=== PATIENT | male | born 1960 | race African-American/Black ===

== ENCOUNTER 2017-06-04 14:02 | Inpatient (IN) | payer OTHER ==
[2017-06-04 14:50] VITALS: BMI 28.0
[2017-06-04] MEDS ORDERED: MAG HYDROX/AL HYDROX/SIMETH 30 ML UNIT-DOSE CUP PO PRN (16:09)
[2017-06-04] MEDS ORDERED: guaiFENesin/D-METHORPHAN HB 10 ML UNIT-DOSE CUPS PO PRN (16:09)
[2017-06-04] MEDS ORDERED: MAGNESIUM HYDROX 2400MG/30ML ORAL SUSPENSION 30 ML CUP PO PRN (16:09)
[2017-06-04] MEDS ORDERED: LOPERAMIDE HCL 2 MG CAPSULE PO PRN (16:09)
[2017-06-04] MEDS ORDERED: P-EPHED 60MG/TRIPROLIDI 2.5MG TABLET PO PRN (16:09)
[2017-06-04] MEDS ORDERED: MENTHOL/PHENOL 1 EACH UD MM PRN (16:09)
[2017-06-04] MEDS ORDERED: MAGNESIUM CITRATE 300 ML BOTTLE PO PRN (16:09)
[2017-06-04] MEDS ORDERED: hydrOXYzine PAMOATE 50 MG CAPSULE (FP) PO PRN (16:09)
[2017-06-04] MEDS ORDERED: NICOTINE POLACRILEX 2 MG GUM BC PRN (16:09)
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
[2017-06-04] MEDS ORDERED: METHADONE HCL 10 MG TABLET (FOR DETOX USE ONLY) PO ONE ×2 (17:15→23:00)
[2017-06-04] MEDS: diazePAM 5 MG TABLET PO PRN (18:13)
[2017-06-04] MEDS: NICOTINE 14 MG/24 HOURS TOPICAL PATCH TD SCH (18:14)
[2017-06-04] MEDS: THIAMINE HCL 100 MG TABLET (FP) PO SCH (22:38)
[2017-06-04] MEDS: diphenhydrAMINE HCL 50 MG CAPSULE PO PRN (22:39)
[2017-06-05 00:45] LABS: URINE APPEARANCE SLCLOUDY; URINE BILIRUBIN NEGATIVE (NEGATIVE); URINE BLOOD NEGATIVE (NEGATIVE); URINE COLOR YELLOW; URINE GLUCOSE (UA) NEGATIVE (NEGATIVE); URINE KETONE TRACE (NEGATIVE); URINE LEUK ESTERASE NEGATIVE (NEGATIVE); URINE NITRITE NEGATIVE (NEGATIVE); URINE PROTEIN NEGATIVE (NEGATIVE)
[2017-06-05 09:51] LABS: MCH 27.4 pg (25.7-33.7); MCHC 32.5 g/dl (32.0-35.9); MEAN CELL VOLUME 84.4 fl (80-96); MEAN PLT VOLUME 8.5 fl (7.5-11.1); PLATELET COUNT 219 K/MM3 (134-434); RDW 14.9 % (11.9-15.9); WHITE BLOOD COUNT 5.4 K/mm3 (4.0-10.0)
[2017-06-05 09:56] LABS: ALBUMIN 2.9 g/dl (3.4-5.0); ALK PHOS 100 U/L (45-117); ANION GAP 6 (8-16); BILIRUBIN,TOTAL 0.3 mg/dL (0.2-1.0); CALCIUM 7.9 mg/dL (8.5-10.1); CO2 26 mmol/L (21-32); CREATININE 0.7 mg/dL (0.7-1.3); GLUCOSE,RANDOM 82 mg/dL (74-106); SGOT/AST 12 U/L (15-37); SGPT/ALT 21 U/L (12-78); TOT PROT 5.8 g/dl (6.4-8.2)
[2017-06-05] MEDS ORDERED: METHADONE HCL 10 MG TABLET (FOR DETOX USE ONLY) PO ONE (10:00)
[2017-06-05] MEDS: PHENYTOIN NA EXTENDED 100 MG CAPSULE (FP) PO SCH (10:34)
[2017-06-05] MEDS: PRENATAL VITAMINS W/ FOLIC ACID TABLET (FP) PO SCH (10:34)
[2017-06-05] MEDS: NICOTINE 14 MG/24 HOURS TOPICAL PATCH TD SCH (10:34)
[2017-06-05 11:17] LABS: SICKLE CELL SCREEN NEGATIVE (NEGATIVE)
--- NOTE | 2017-06-05 13:02 | PN ---
BHS COWS - Scale Resting Pulse: 0= [place] 80 or Below Sweatin= Chills/Flushing Restless Observation: 1= Difficult to Sit Still Pupil Size: 0= Normal to Room Light Bone or Joint Aches: 2= Severe Diffuse Aches Runny Nose/ Eye Tearin= Runny Nose/Eyes GI Upset > 30mins: 1= Stomach Cramp Tremor Observation of Outstretched Hands: 2= Slight Tremor Visible Yawning Observation: 2= >3x During Session Anxiety or Irritability: 2=Irritable/Anxious Goose Flesh Skin: 3=Piloerection COWS Score: 16 BHS Progress Note (SOAP) Subjective: Sweating, Tremors, Fatigue, Body Aches. Objective: PT. A & O X 3, OBSERVED AMBULATING ON UNIT. NO ACUTE DISTRESS. PT. DENIES CHEST PAIN. 06/05/17 12:59 Vital Signs Temperature 97.5 F L 06/05/17 11:21 Pulse Rate 79 06/05/17 11:21 Respiratory Rate 18 06/05/17 11:21 Blood Pressure 123/88 06/05/17 11:21 O2 Sat by Pulse Oximetry (%) Laboratory Tests 06/04/17 06/05/17 06/05/17 21:30 07:50 07:50 WBC 5.4 RBC 5.01 Hgb 13.8 Hct 42.3 MCV 84.4 MCH 27.4 MCHC 32.5 RDW 14.9 Plt Count 219 MPV 8.5 Sickle Cell Screen Negative Sodium 142 Potassium 4.1 Chloride 110 H Carbon Dioxide 26 Anion Gap 6 L BUN 7 Creatinine 0.7 Creat Clearance w eGFR > 60 Random Glucose 82 Calcium 7.9 L Total Bilirubin 0.3 AST 12 L ALT 21 Alkaline Phosphatase 100 Total Protein 5.8 L Albumin 2.9 L Urine Color Yellow Urine Appearance Slcloudy Urine pH 5.0 Ur Specific [place] >= 1.030 H Urine Protein Negative Urine Glucose (UA) Negative Urine Ketones Trace H Urine Blood Negative Urine Nitrite Negative Urine Bilirubin Negative Urine Urobilinogen 2.0 Phenytoin RPR Titer 06/05/17 06/05/17 07:50 08:10 WBC RBC Hgb Hct MCV MCH MCHC RDW Plt Count MPV Sickle Cell Screen Sodium Potassium Chloride Carbon Dioxide Anion Gap BUN Creatinine Creat Clearance w eGFR Random Glucose Calcium Total Bilirubin AST ALT Alkaline Phosphatase Total Protein Albumin Urine Color Urine Appearance Urine pH Ur Specific [place] Urine Protein Urine Glucose (UA) Urine Ketones Urine Blood Urine Nitrite Urine Bilirubin Urine Urobilinogen Phenytoin 15.6 RPR Titer Nonreactive LABS NOTED. HCV AB RESULT PENDING. 06/05/17 13:01 Assessment: 06/05/17 12:59 WITHDRAWAL SYMPTOMS. Plan: CONTINUE DETOX. REPEAT UA FOR ADMISSION UA ABNORMAL VALUES.
[2017-06-05] MEDS: ACETAMINOPHEN 325 MG TABLET (FP) PO PRN (15:12)
[2017-06-05] MEDS: diazePAM 5 MG TABLET PO PRN (20:16)
[2017-06-05] MEDS: IBUPROFEN 400 MG TABLET (FP) PO PRN (20:19)
[2017-06-05] MEDS: diphenhydrAMINE HCL 50 MG CAPSULE PO PRN (22:28)
[2017-06-05] MEDS: THIAMINE HCL 100 MG TABLET (FP) PO SCH (22:28)
[2017-06-06] MEDS: diazePAM 5 MG TABLET PO PRN ×2 (05:22→22:04)
[2017-06-06] MEDS ORDERED: METHADONE HCL 5 MG TABLET (FOR DETOX USE ONLY) PO ONE (10:00)
[2017-06-06] MEDS: PHENYTOIN NA EXTENDED 100 MG CAPSULE (FP) PO SCH (10:04)
[2017-06-06] MEDS: PRENATAL VITAMINS W/ FOLIC ACID TABLET (FP) PO SCH (10:04)
[2017-06-06] MEDS: NICOTINE 14 MG/24 HOURS TOPICAL PATCH TD SCH (10:07)
[2017-06-06] MEDS: IBUPROFEN 400 MG TABLET (FP) PO PRN (19:08)
--- NOTE | 2017-06-06 19:32 | PN ---
S COWS - Scale Resting Pulse: 0= [place] 80 or Below Sweatin= Chills/Flushing Restless Observation: 0= Sits Still Pupil Size: 0= Normal to Room Light Bone or Joint Aches: 2= Severe Diffuse Aches Runny Nose/ Eye Tearin= Nasal Congestion GI Upset > 30mins: 1= Stomach Cramp Tremor Observation of Outstretched Hands: 2= Slight Tremor Visible Yawning Observation: 1= 1-2x During Session Anxiety or Irritability: 2=Irritable/Anxious Goose Flesh Skin: 3=Piloerection COWS Score: 13 S Progress Note (SOAP) Subjective: Tremors, Fatigue, Body Aches. Objective: PT. A & O X 3, OBSERVED AMBULATING ON UNIT. NO ACUTE DISTRESS. 06/06/17 19:31 Vital Signs Temperature 97.4 F L 06/06/17 18:10 Pulse Rate 71 06/06/17 18:10 Respiratory Rate 18 06/06/17 18:10 Blood Pressure 104/60 06/06/17 18:10 O2 Sat by Pulse Oximetry (%) Laboratory Tests 06/04/17 06/05/17 06/05/17 21:30 07:50 07:50 WBC 5.4 RBC 5.01 Hgb 13.8 Hct 42.3 MCV 84.4 MCH 27.4 MCHC 32.5 RDW 14.9 Plt Count 219 MPV 8.5 Sickle Cell Screen Negative Sodium Potassium Chloride Carbon Dioxide Anion Gap BUN Creatinine Creat Clearance w eGFR Random Glucose Calcium Total Bilirubin AST ALT Alkaline Phosphatase Total Protein Albumin Urine Color Yellow Urine Appearance Slcloudy Urine pH 5.0 Ur Specific [place] >= 1.030 H Urine Protein Negative Urine Glucose (UA) Negative Urine Ketones Trace H Urine Blood Negative Urine Nitrite Negative Urine Bilirubin Negative Urine Urobilinogen 2.0 Phenytoin RPR Titer Hepatitis C Antibody 0.2 06/05/17 06/05/17 06/05/17 07:50 07:50 08:10 WBC RBC Hgb Hct MCV MCH MCHC RDW Plt Count MPV Sickle Cell Screen Sodium 142 Potassium 4.1 Chloride 110 H Carbon Dioxide 26 Anion Gap 6 L BUN 7 Creatinine 0.7 Creat Clearance w eGFR > 60 Random Glucose 82 Calcium 7.9 L Total Bilirubin 0.3 AST 12 L ALT 21 Alkaline Phosphatase 100 Total Protein 5.8 L Albumin 2.9 L Urine Color Urine Appearance Urine pH Ur Specific [place] Urine Protein Urine Glucose (UA) Urine Ketones Urine Blood Urine Nitrite Urine Bilirubin Urine Urobilinogen Phenytoin 15.6 RPR Titer Nonreactive Hepatitis C Antibody LABS NOTED. Assessment: 06/06/17 19:31 WITHDRAWAL SYMPTOMS. Plan: CONTINUE DETOX.
[2017-06-06] MEDS: THIAMINE HCL 100 MG TABLET (FP) PO SCH (22:03)
[2017-06-06] MEDS: diphenhydrAMINE HCL 50 MG CAPSULE PO PRN (22:04)
[2017-06-07] MEDS: diazePAM 5 MG TABLET PO PRN ×2 (05:36→10:29)
[2017-06-07] MEDS ORDERED: METHADONE HCL 5 MG TABLET (FOR DETOX USE ONLY) PO ONE (10:00)
[2017-06-07] MEDS: PRENATAL VITAMINS W/ FOLIC ACID TABLET (FP) PO SCH (10:29)
[2017-06-07] MEDS: PHENYTOIN NA EXTENDED 100 MG CAPSULE (FP) PO SCH (10:29)
[2017-06-07] MEDS: NICOTINE 14 MG/24 HOURS TOPICAL PATCH TD SCH (10:30)
[2017-06-07 10:35] LABS: URINE APPEARANCE CLEAR; URINE BILIRUBIN NEGATIVE (NEGATIVE); URINE BLOOD NEGATIVE (NEGATIVE); URINE COLOR STRAW; URINE GLUCOSE (UA) NEGATIVE (NEGATIVE); URINE KETONE NEGATIVE (NEGATIVE); URINE LEUK ESTERASE NEGATIVE (NEGATIVE); URINE NITRITE NEGATIVE (NEGATIVE); URINE PROTEIN NEGATIVE (NEGATIVE); URINE UROBILINOGEN NEGATIVE mg/dL (0.2-1.0)
--- NOTE | 2017-06-07 18:34 | PN ---
BHS Progress Note (SOAP) Subjective: Rhinorrhea, sweating, chills, anxious Objective: 06/07/17 18:33 Last Vital Signs Temp Pulse Resp BP Pulse Ox 97.4 F L 79 18 111/72 06/07/17 18:25 06/07/17 18:25 06/07/17 18:25 06/07/17 18:25 Laboratory Tests 06/04/17 06/05/17 06/05/17 21:30 07:50 07:50 WBC 5.4 RBC 5.01 Hgb 13.8 Hct 42.3 MCV 84.4 MCH 27.4 MCHC 32.5 RDW 14.9 Plt Count 219 MPV 8.5 Sickle Cell Screen Negative Sodium Potassium Chloride Carbon Dioxide Anion Gap BUN Creatinine Creat Clearance w eGFR Random Glucose Calcium Total Bilirubin AST ALT Alkaline Phosphatase Total Protein Albumin Urine Color Yellow Urine Appearance Slcloudy Urine pH 5.0 Ur Specific [place] >= 1.030 H Urine Protein Negative Urine Glucose (UA) Negative Urine Ketones Trace H Urine Blood Negative Urine Nitrite Negative Urine Bilirubin Negative Urine Urobilinogen 2.0 Phenytoin RPR Titer Hepatitis C Antibody 0.2 06/05/17 06/05/17 06/05/17 07:50 07:50 08:10 WBC RBC Hgb Hct MCV MCH MCHC RDW Plt Count MPV Sickle Cell Screen Sodium 142 Potassium 4.1 Chloride 110 H Carbon Dioxide 26 Anion Gap 6 L BUN 7 Creatinine 0.7 Creat Clearance w eGFR > 60 Random Glucose 82 Calcium 7.9 L Total Bilirubin 0.3 AST 12 L ALT 21 Alkaline Phosphatase 100 Total Protein 5.8 L Albumin 2.9 L Urine Color Urine Appearance Urine pH Ur Specific [place] Urine Protein Urine Glucose (UA) Urine Ketones Urine Blood Urine Nitrite Urine Bilirubin Urine Urobilinogen Phenytoin 15.6 RPR Titer Nonreactive Hepatitis C Antibody 06/07/17 07:30 WBC RBC Hgb Hct MCV MCH MCHC RDW Plt Count MPV Sickle Cell Screen Sodium Potassium Chloride Carbon Dioxide Anion Gap BUN Creatinine Creat Clearance w eGFR Random Glucose Calcium Total Bilirubin AST ALT Alkaline Phosphatase Total Protein Albumin Urine Color Straw Urine Appearance Clear Urine pH 7.0 D Ur Specific [place] 1.020 Urine Protein Negative Urine Glucose (UA) Negative Urine Ketones Negative Urine Blood Negative Urine Nitrite Negative Urine Bilirubin Negative Urine Urobilinogen Negative Phenytoin RPR Titer Hepatitis C Antibody Labs noted Assessment: 06/07/17 18:33 Withdrawal symptoms Plan: Continue detox
[2017-06-07] MEDS: ACETAMINOPHEN 325 MG TABLET (FP) PO PRN (18:35)
[2017-06-07] MEDS: THIAMINE HCL 100 MG TABLET (FP) PO SCH (22:02)
[2017-06-07] MEDS: diphenhydrAMINE HCL 50 MG CAPSULE PO PRN (22:02)
[2017-06-07] MEDS: IBUPROFEN 400 MG TABLET (FP) PO PRN (23:35)
[2017-06-08] MEDS: ACETAMINOPHEN 325 MG TABLET (FP) PO PRN (05:38)
[2017-06-08] MEDS ORDERED: METHADONE HCL 10 MG TABLET (FOR DETOX USE ONLY) PO ONE (10:00)
[2017-06-08] MEDS: NICOTINE 14 MG/24 HOURS TOPICAL PATCH TD SCH (10:19)
[2017-06-08] MEDS: PRENATAL VITAMINS W/ FOLIC ACID TABLET (FP) PO SCH (10:19)
[2017-06-08] MEDS: PHENYTOIN NA EXTENDED 100 MG CAPSULE (FP) PO SCH (10:19)
[2017-06-08] MEDS: IBUPROFEN 400 MG TABLET (FP) PO PRN (10:22)
[2017-06-08] MEDS ORDERED: IBUPROFEN 600 MG TABLET (FP) PO PRN (10:49)
--- NOTE | 2017-06-08 11:05 | PN ---
BHS Progress Note (SOAP) Subjective: Body aches,stuffy & runny nose,interrupted sleep,restless Objective: 06/08/17 11:03 Vital Signs - 8 hr 06/08/17 06/08/17 06/08/17 04:05 06:05 09:40 Temperature 98.2 F 97.6 F Pulse Rate 77 72 Respiratory 18 18 20 Rate Blood Pressure 141/95 129/91 Laboratory Last Values WBC 5.4 K/mm3 (4.0-10.0) 06/05/17 07:50 RBC 5.01 M/mm3 (4.00-5.60) 06/05/17 07:50 Hgb 13.8 GM/dL (11.7-16.9) 06/05/17 07:50 Hct 42.3 % (35.4-49) 06/05/17 07:50 MCV 84.4 fl (80-96) 06/05/17 07:50 MCH 27.4 pg (25.7-33.7) 06/05/17 07:50 MCHC 32.5 g/dl (32.0-35.9) 06/05/17 07:50 RDW 14.9 % (11.9-15.9) 06/05/17 07:50 Plt Count 219 K/MM3 (134-434) 06/05/17 07:50 MPV 8.5 fl (7.5-11.1) 06/05/17 07:50 Sickle Cell Screen Negative (NEGATIVE) 06/05/17 07:50 Sodium 142 mmol/L (136-145) 06/05/17 07:50 Potassium 4.1 mmol/L (3.5-5.1) 06/05/17 07:50 Chloride 110 mmol/L (98-107) H 06/05/17 07:50 Carbon Dioxide 26 mmol/L (21-32) 06/05/17 07:50 Anion Gap 6 (8-16) L 06/05/17 07:50 BUN 7 mg/dL (7-18) 06/05/17 07:50 Creatinine 0.7 mg/dL (0.7-1.3) 06/05/17 07:50 Creat Clearance w eGFR > 60 (>60) 06/05/17 07:50 Random Glucose 82 mg/dL (74-106) 06/05/17 07:50 Calcium 7.9 mg/dL (8.5-10.1) L 06/05/17 07:50 Total Bilirubin 0.3 mg/dL (0.2-1.0) 06/05/17 07:50 AST 12 U/L (15-37) L 06/05/17 07:50 ALT 21 U/L (12-78) 06/05/17 07:50 Alkaline Phosphatase 100 U/L (45-117) 06/05/17 07:50 Total Protein 5.8 g/dl (6.4-8.2) L 06/05/17 07:50 Albumin 2.9 g/dl (3.4-5.0) L 06/05/17 07:50 Urine Color Straw 06/07/17 07:30 Urine Appearance Clear 06/07/17 07:30 Urine pH 7.0 (5.0-8.0) D 06/07/17 07:30 Ur Specific [place] 1.020 (1.005-1.025) 06/07/17 07:30 Urine Protein Negative (NEGATIVE) 06/07/17 07:30 Urine Glucose (UA) Negative (NEGATIVE) 06/07/17 07:30 Urine Ketones Negative (NEGATIVE) 06/07/17 07:30 Urine Blood Negative (NEGATIVE) 06/07/17 07:30 Urine Nitrite Negative (NEGATIVE) 06/07/17 07:30 Urine Bilirubin Negative (NEGATIVE) 06/07/17 07:30 Urine Urobilinogen Negative mg/dL (0.2-1.0) 06/07/17 07:30 Phenytoin 15.6 ug/ml (10.0-20.0) 06/05/17 08:10 RPR Titer Nonreactive (NONREACTIVE) 06/05/17 07:50 Hepatitis C Antibody 0.2 s/co ratio (0.0-0.9) 06/05/17 07:50 labs noted Assessment: 06/08/17 11:04 Withdrawal sx. Plan: Continue detox
[2017-06-08] MEDS: cloNIDine HCL 0.1 MG TABLET PO SCH ×2 (12:12→21:44)
[2017-06-08] MEDS: CYCLOBENZAPRINE HCL 5 MG TABLET PO SCH ×2 (13:09→21:44)
--- NOTE | 2017-06-08 17:04 | EKG ---
Test Reason : Blood Pressure : / mmHG Vent. Rate : 075 BPM Atrial Rate : 075 BPM P-R Int : 168 ms QRS Dur : 100 ms QT Int : 422 ms P-R-T Axes : 069 061 051 degrees QTc Int : 471 ms NORMAL SINUS RHYTHM POSSIBLE LEFT ATRIAL ENLARGEMENT BORDERLINE ECG NO PREVIOUS ECGS AVAILABLE Confirmed by THALIA MENDOZA, DELBERT ([id number]) on 06/08/2017 5:04:31 PM Referred By: Robert Hernandez Confirmed By:DELBERT VÁSQUEZ MD
[2017-06-08] MEDS: THIAMINE HCL 100 MG TABLET (FP) PO SCH (21:43)
[2017-06-08] MEDS: diphenhydrAMINE HCL 50 MG CAPSULE PO PRN (21:44)
[2017-06-09] MEDS: CYCLOBENZAPRINE HCL 5 MG TABLET PO SCH (05:57)
[2017-06-09] MEDS: ACETAMINOPHEN 325 MG TABLET (FP) PO PRN (05:59)
[2017-06-09] MEDS ORDERED: METHADONE HCL 5 MG TABLET (FOR DETOX USE ONLY) PO ONE (06:00)
--- NOTE | 2017-06-09 09:08 | DS ---
[facility] Detox Discharge Summary Admission Date: 06/04/17 Discharge Date: 06/09/17 - History Present History: Cocaine Dependence, Opioid Dependence Additional Comments: DETOX COMPLETED. ALERT O X 3. NAD. Pertinent Past History: HX EPILEPSY - Physical Exam Results Vital Signs: Vital Signs Temperature 98 F 06/09/17 07:04 Pulse Rate 81 06/09/17 07:04 Respiratory Rate 18 06/09/17 07:04 Blood Pressure 112/76 06/09/17 07:04 O2 Sat by Pulse Oximetry (%) Pertinent Admission Physical Exam Findings: WITHDRAWAL SX Laboratory Last Values WBC 5.4 K/mm3 (4.0-10.0) 06/05/17 07:50 RBC 5.01 M/mm3 (4.00-5.60) 06/05/17 07:50 Hgb 13.8 GM/dL (11.7-16.9) 06/05/17 07:50 Hct 42.3 % (35.4-49) 06/05/17 07:50 MCV 84.4 fl (80-96) 06/05/17 07:50 MCH 27.4 pg (25.7-33.7) 06/05/17 07:50 MCHC 32.5 g/dl (32.0-35.9) 06/05/17 07:50 RDW 14.9 % (11.9-15.9) 06/05/17 07:50 Plt Count 219 K/MM3 (134-434) 06/05/17 07:50 MPV 8.5 fl (7.5-11.1) 06/05/17 07:50 Sickle Cell Screen Negative (NEGATIVE) 06/05/17 07:50 Sodium 142 mmol/L (136-145) 06/05/17 07:50 Potassium 4.1 mmol/L (3.5-5.1) 06/05/17 07:50 Chloride 110 mmol/L (98-107) H 06/05/17 07:50 Carbon Dioxide 26 mmol/L (21-32) 06/05/17 07:50 Anion Gap 6 (8-16) L 06/05/17 07:50 BUN 7 mg/dL (7-18) 06/05/17 07:50 Creatinine 0.7 mg/dL (0.7-1.3) 06/05/17 07:50 Creat Clearance w eGFR > 60 (>60) 06/05/17 07:50 Random Glucose 82 mg/dL (74-106) 06/05/17 07:50 Calcium 7.9 mg/dL (8.5-10.1) L 06/05/17 07:50 Total Bilirubin 0.3 mg/dL (0.2-1.0) 06/05/17 07:50 AST 12 U/L (15-37) L 06/05/17 07:50 ALT 21 U/L (12-78) 06/05/17 07:50 Alkaline Phosphatase 100 U/L (45-117) 06/05/17 07:50 Total Protein 5.8 g/dl (6.4-8.2) L 06/05/17 07:50 Albumin 2.9 g/dl (3.4-5.0) L 06/05/17 07:50 Urine Color Straw 06/07/17 07:30 Urine Appearance Clear 06/07/17 07:30 Urine pH 7.0 (5.0-8.0) D 06/07/17 07:30 Ur Specific [place] 1.020 (1.005-1.025) 06/07/17 07:30 Urine Protein Negative (NEGATIVE) 06/07/17 07:30 Urine Glucose (UA) Negative (NEGATIVE) 06/07/17 07:30 Urine Ketones Negative (NEGATIVE) 06/07/17 07:30 Urine Blood Negative (NEGATIVE) 06/07/17 07:30 Urine Nitrite Negative (NEGATIVE) 06/07/17 07:30 Urine Bilirubin Negative (NEGATIVE) 06/07/17 07:30 Urine Urobilinogen Negative mg/dL (0.2-1.0) 06/07/17 07:30 Phenytoin 15.6 ug/ml (10.0-20.0) 06/05/17 08:10 RPR Titer Nonreactive (NONREACTIVE) 06/05/17 07:50 Hepatitis C Antibody 0.2 s/co ratio (0.0-0.9) 06/05/17 07:50 - Treatment Hospital Course: Detox Protocol Followed, Detoxed Safely, Responded well, Discharged Condition Good, Rehab Referral Accepted Patient has Accepted a Rehab Referral to: [facility] - Medication Discharge Medications: Ambulatory Orders Phenytoin Na Extended [Dilantin -] 500 mg PO DAILY 06/04/17 - Diagnosis (1) Cocaine dependence Current Visit: Yes Status: Acute (2) Epilepsy Current Visit: Yes Status: Acute (3) Nicotine dependence Current Visit: Yes Status: Acute Qualifiers: Nicotine product type: cigarettes Substance use status: in withdrawal Qualified Code(s): F17.213 - Nicotine dependence, cigarettes, with withdrawal (4) Opioid dependence with withdrawal Current Visit: Yes Status: Acute - AMA Did Patient Leave Against Medical Advice: No
[2017-06-09 09:14] VITALS: BP 126/82; PULSE 78; TEMP 97.2
[2017-06-09] MEDS: PRENATAL VITAMINS W/ FOLIC ACID TABLET (FP) PO SCH (10:27)
[2017-06-09] MEDS: cloNIDine HCL 0.1 MG TABLET PO SCH (10:27)
[2017-06-09] MEDS: PHENYTOIN NA EXTENDED 100 MG CAPSULE (FP) PO SCH (10:27)
[2017-06-09] MEDS: NICOTINE 14 MG/24 HOURS TOPICAL PATCH TD SCH (10:27)
== END 2017-06-09 11:29 | disposition other institution (70) | DRG 897 ==
LOC: YASAS 14:02 → Y3N 16:59
PROVIDERS: ADMIT Internal Medicine; ATTEND Internal Medicine
PROC: HZ2ZZZZ Detoxification Services for Substance Abuse Treatment (ICD-10-PCS; principal; 2017-06-04)
DX: F11.23 Opioid dependence with withdrawal (principal); F14.20 Cocaine dependence, uncomplicated; F17.213 Nicotine dependence, cigarettes, with withdrawal; G40.909 Epilepsy, unspecified, not intractable, without status epilepticus; Z87.828 Personal history of other (healed) physical injury and trauma
CPT/HCPCS: 36415; 80053; 80185; 81003; 85027; 85660; 86593; 86803; 93005; 93010